=== PATIENT | female | born 1980 ===

== ENCOUNTER 2017-09-30 10:09 | Emergency (ER) | payer MEDICAID ==
[2017-09-30] MEDS ORDERED: Sodium Chloride 0.9% 1,000 ML IV ONE (10:57)
[2017-09-30] MEDS ORDERED: Sodium Chloride 0.9% 1,000 ML ONE (11:05)
--- NOTE | 2017-09-30 11:18 | C.PDOC ---
History Of Present Illness 37 y/o female presents to ED with complaints of abdominal pain and headache for 3 days. Patient reports x1 episode of vomiting yesterday and reports pain is worse when eating. Patient took Tylenol today prior to arrival with minimal relief. Patient denies fever, chills, dysuria, diarrhea or any other complaints at this time. Time Seen by Provider: 09/30/17 10:53 Chief Complaint (Nursing): Abdominal Pain History Per: Patient History/Exam Limitations: no limitations Onset/Duration Of Symptoms: Days Current Symptoms Are (Timing): Still Present Context: Food Location Of Pain/Discomfort: Epigastric Past Medical History Reviewed: Historical Data, Nursing Documentation, Vital Signs Vital Signs: Last Vital Signs Temp 98.4 F 09/30/17 14:00 Pulse 92 H 09/30/17 14:00 Resp 18 09/30/17 14:00 BP 129/86 09/30/17 14:00 Pulse Ox 100 09/30/17 14:00 - Medical History PMH: No Chronic Diseases Surgical History: No Surg Hx Family History: States: No Known Family Hx - Social History Hx Alcohol Use: No Hx Substance Use: No - Immunization History Hx Tetanus Toxoid Vaccination: No Hx Influenza Vaccination: No Hx Pneumococcal Vaccination: No Review Of Systems Constitutional: Negative for: Fever, Chills Gastrointestinal: Positive for: Nausea, Vomiting, Abdominal Pain. Negative for : Diarrhea Genitourinary: Negative for: Dysuria Musculoskeletal: Negative for: Back Pain Skin: Negative for: Rash Neurological: Positive for: Headache Physical Exam - Physical Exam Appears: Non-toxic, No Acute Distress Skin: Warm, Dry, No Rash Head: Atraumatic, Normacephalic Eye(s): bilateral: Normal Inspection, EOMI Oral Mucosa: Moist Neck: Normal ROM, Supple Cardiovascular: Rhythm Regular Respiratory: Normal Breath Sounds, No Rales, No Rhonchi, No Wheezing Gastrointestinal/Abdominal: Bowel Sounds, Soft, Tenderness (mildly tender to abdomen, nonfocal), No Mass, No Distention, No Guarding, No Rebound Back: Normal Inspection, No CVA Tenderness Extremity: Normal ROM, No Tenderness, Capillary Refill (<2 seconds), No Deformity, No Swelling Neurological/Psych: Oriented x3, Normal Speech, Normal Motor, Normal Sensation ED Course And Treatment - Laboratory Results Result Diagrams: 09/30/17 11:16 09/30/17 11:16 Lab Interpretation: Abnormal O2 Sat by Pulse Oximetry: 98 (RA) Pulse Ox Interpretation: Normal Medical Decision Making Medical Decision Making: Impression: abdominal pain Plan: Blood work, UA Progress: Labs show mild leukocytosis, UA shows +nitrates, LE and WBC. Will treat for cystitis. IV NS and Rocephin ordered. On re-eval patient has no fever and reports feeling better. Will discharge with Rx cipro and instruct to follow up with PCP Disposition Counseled Patient/Family Regarding: Diagnosis, Need For Followup, Rx Given - Disposition Referrals: [facility] [Outside] [facility] [Outside] Disposition: HOME/ ROUTINE Disposition Time: 12:20 Condition: STABLE Additional Instructions: Take antibiotic twice daily and be sure to finish taking all of antibiotic. Drink plenty of fluids. If urine culture was performed, call back for results in 2-3 days for results to confirm antibiotic is treating UTI well. Prescriptions: Ciprofloxacin [Cipro] 1 tab PO BID #14 tab Instructions: Urinary Tract Infection in Women (DC) Forms: [employer] ([employer]) - POA Present On Arrival: None - Clinical Impression Clinical Impression: Cystitis - PA / RUBBER CURER / Resident Statement MD/DO has reviewed & agrees with the documentation as recorded. - Scribe Statement The provider has reviewed the documentation as recorded by the Shreyasibandrew Spencer All medical record entries made by the Ava were at my direction and personally dictated by me. I have reviewed the chart and agree that the record accurately reflects my personal performance of the history, physical exam, medical decision making, and the department course for this patient. I have also personally directed, reviewed, and agree with the discharge instructions and disposition.
[2017-09-30 11:23] LABS: BASO % 0.4 % (0.0-2.0); EOS % 0.1 % (0.0-4.0); HEMATOCRIT 37.5 % (34.0-47.0); LYMPH # 1.4 K/uL (1.0-4.3); LYMPH % 11.5 % (20.0-40.0); MEAN CORPUSCULAR HEMOGLOBIN 30.3 pg (27.0-31.0); MEAN CORPUSCULAR HGB CONC 34.5 g/dL (33.0-37.0); MEAN PLATELET VOLUME 7.5 fL (7.2-11.7); MONO # 1.3 K/uL (0.0-0.8); MONO % 10.4 % (0.0-10.0); RED CELL DISTRIBUTION WIDTH 12.4 % (11.5-14.5); WHITE BLOOD COUNT 12.5 K/uL (4.8-10.8)
[2017-09-30 11:35] LABS: CHLORIDE 98 mmol/L (98-107); POTASSIUM 3.8 mmol/L (3.6-5.2); SODIUM 133 mmol/L (132-148)
[2017-09-30 11:37] LABS: CARBON DIOXIDE 23 mmol/L (22-30); GFR AFRICAN-AMERICAN > 60; RBC URINE 10 /hpf (0-3); URINE BACTERIA FEW (<OCC); URINE BILIRUBIN NEGATIVE (NEGATIVE); URINE BLOOD 2+ (NEGATIVE); URINE COLOR Yellow (YELLOW); URINE GLUCOSE (UA) 2+ mg/dL (Normal); URINE KETONE TRACE mg/dL (NEGATIVE); URINE LEUKOCYTE ESTERASE 1+ Leu/uL (Negative); URINE PROTEIN 1+ mg/dL (NEGATIVE); URINE UROBILINOGEN NORMAL mg/dL (0.2-1.0); WBC URINE 39 /hpf (0-5)
[2017-09-30 11:38] LABS: ALKALINE PHOSPHATASE 57 U/L (38-126); ALT/SGPT 44 U/L (9-52); AST/SGOT 28 U/L (14-36); BLOOD UREA NITROGEN 7 mg/dL (7-17); CALCIUM 9.1 mg/dl (8.6-10.4); GLUCOSE,RANDOM 136 mg/dL (65-105); TOTAL PROTEIN 8.8 g/dL (6.3-8.3)
[2017-09-30] MEDS ORDERED: cefTRIAXone IV 1 gm in Dextros 50 ML IV ONE (11:43)
[2017-09-30 14:06] VITALS: BP 129/86; PULSE 92; RESP 18; TEMP 98.4
[2017-09-30 14:36] VITALS: O2SAT 98
== END 2017-09-30 14:06 | disposition home or self-care (01) ==
LOC: C.ER 10:09
DX: N30.90 Cystitis, unspecified without hematuria (principal)
CPT/HCPCS: 80053; 81001; 83690; 84703; 85025; 87086; 87181; 96361; 96365; 96375; 99285; J0696; J2765; J7040

== ENCOUNTER 2017-11-02 13:52 | Emergency (ER) | payer MEDICAID, OTHER ==
[2017-11-02 14:02] VITALS: BMI 29.2
[2017-11-02 14:05] VITALS: BP 131/82; PULSE 86; RESP 18; TEMP 98; O2SAT 99
--- NOTE | 2017-11-02 14:13 | C.PDOC ---
History Of Present Illness 37year old female presents to the ED complaining of congestion, eye pain, watery eyes, sneezing, and cough since last night. Patient took Tylenol last night and this morning. Patient denies fever and sore throat. Time Seen by Provider: 11/02/17 13:59 Chief Complaint (Nursing): Cough, Cold, Congestion History Per: Patient History/Exam Limitations: no limitations Onset/Duration Of Symptoms: Hrs (since last night) Current Symptoms Are (Timing): Still Present Past Medical History Vital Signs: Last Vital Signs Temp 98.0 F 11/02/17 14:02 Pulse 86 11/02/17 14:02 Resp 18 11/02/17 14:02 BP 131/82 11/02/17 14:02 Pulse Ox 99 11/02/17 14:15 - Medical History PMH: No Chronic Diseases Family History: States: No Known Family Hx - Social History Hx Alcohol Use: No Hx Substance Use: No - Immunization History Hx Tetanus Toxoid Vaccination: No Hx Influenza Vaccination: No Hx Pneumococcal Vaccination: No Review Of Systems Except As Marked, All Systems Reviewed And Found Negative. Constitutional: Negative for: Fever Eyes: Positive for: Pain, Other (watery eyes) ENT: Positive for: Nose Congestion. Negative for: Throat Pain Respiratory: Positive for: Cough Physical Exam - Physical Exam Appears: Well Skin: Normal Color Eye(s): bilateral: Normal Inspection Throat: Normal, No Erythema, No Exudate Neck: Normal ED Course And Treatment O2 Sat by Pulse Oximetry: 99 Progress Note: Plan: --Will discharge patient with prescription Disposition - Disposition Disposition: HOME/ ROUTINE Disposition Time: 19:00 Condition: STABLE Additional Instructions: Plenty of fluids. Tylenol every 4 hours. Dayquil during the day as a decongestant. Prescriptions: Promethazine DM [Phenergan DM Syrup] 5 ml PO QPM #90 cup Instructions: Upper Respiratory Infection (ED) Forms: General Discharge Instructions, [facility] ([place]) - Clinical Impression Clinical Impression: Viral disease - Scribe Statement The provider has reviewed the documentation as recorded by the Scribe Jace Her Provider Attestation: All medical record entries made by the Scribe were at my direction and personally dictated by me. I have reviewed the chart and agree that the record accurately reflects my personal performance of the history, physical exam, medical decision making, and the department course for this patient. I have also personally directed, reviewed, and agree with the discharge instructions and disposition.
== END 2017-11-02 14:20 | disposition home or self-care (01) ==
LOC: C.ER 13:52
DX: B34.9 Viral infection, unspecified (principal)